=== PATIENT | female | born 1980 | race Caucasian/White ===

== ENCOUNTER → 2019-10-23 13:30 | Outpatient (CLI) | payer OTHER, SELFPAY ==
--- NOTE | 2019-10-23 13:31 | CT_ITS ---
PROCEDURE: CT CHEST WO CON CLINICAL INDICATION: RUL pulmonary nodule Follow-up pulmonary nodule COMPARISON: ABDPELW/O CT ABD PELVIS W/O CONTRAST from 06/18/2013 TECHNIQUE: Axial images obtained with sagittal and coronal reformats. All CT scans at the facility use one or more dose reduction, viz: automated exposure control, ma/kV adjustment per patient size (including targeted exams where dose is matched to indication, i.e. head), or iterative reconstruction technique. FINDINGS: HEART AND MEDIASTINAL STRUCTURES: Scattered small calcified nodes are present in the mediastinum and right hilum. LUNGS AND PLEURAL SPACES: There is a noncalcified 7 x 6 mm right apical nodule within the central aspect of the right apex. Margins are somewhat irregular. There is a 3 mm noncalcified nodule right upper lobe laterally image 41 series 3. There are few scattered subpleural nodules in the right upper lobe nonspecific. Subpleural nodule is present in the right lower lobe posteriorly at 4 mm image 51 series 3. 4 mm noncalcified nodule left lower lobe laterally image 65 series 3. Subpleural nodule left lower lobe laterally 4 mm image 60 series 3 3 mm noncalcified nodule left lower lobe posterior laterally image 57 series 3 there are some paraseptal emphysematous changes with changes of COPD. No effusions or infiltrates. There is a calcified granuloma in the superior segment of the right lower lobe BONY STRUCTURES: No acute finding UPPER ABDOMEN: Unremarkable. ADDITIONAL FINDINGS: No other significant abnormalities. IMPRESSION: There are noncalcified small bilateral pulmonary nodules the largest is in the right apex at 7 x 6 mm. These are nonspecific and could be infectious/inflammatory or neoplastic. There are no previous exams available for comparison. Outside report from a neck CT dating 10/08/2019 mentions a right upper lobe pulmonary nodule at 7 mm. Recommend 3 to six-month follow-up Dictated by: Byron Nielsen MD 10/24/2019 13:13 Electronically signed by Byron Nielsen MD in [place] 10/24/2019 13:13
== END ==
PROVIDERS: PCP Physician Assistant; Visit Provider Physician Assistant
DX: R91.8 Other nonspecific abnormal finding of lung field (principal)
CPT/HCPCS: 71250

== ENCOUNTER → 2019-12-04 14:08 | Outpatient (CLI) | payer OTHER, SELFPAY ==
[2019-12-04 14:11] LABS: MANUAL DIFFERENTIAL MANUAL DIFFERENTIAL (MANUAL DIFF)
[2019-12-04 14:50] LABS: Basophils # 0.1 K/mm3 (0-0.2); Basophils % 0.9 % (0.1-2.0); Eosinophils # 0.1 K/mm3 (0.0-0.4); Eosinophils % 0.7 % (0.1-12.0); Hematocrit 46.4 % (37.0-47.0); Lymphocytes # 2.6 K/mm3 (0.7-4.5); Lymphocytes % 27.4 % (10-50); Mean Corpuscular HGB Conc 32.4 g/dL (31.8-35.4); Mean Corpuscular Hemoglobin 28.1 pg (27.0-31.2); Mean Corpuscular Volume 86.8 fl (81-99); Monocytes # 0.4 K/mm3 (0.1-1.0); Monocytes % 4.4 % (1.7-9.3); Neutrophils # 6.4 K/mm3 (1.8-7.8); Neutrophils % 66.7 % (37.0-80.0); Platelet Count 260 K/mm3 (142-424); Red Blood Count 5.34 M/mm3 (4.20-5.40); White Blood Count 9.6 K/mm3 (4.8-10.8)
[2019-12-04 15:06] LABS: Alanine Aminotransferase 40 U/L (12-78); Albumin Level 4.7 g/dl (3.5-5.0); Alkaline Phosphatase 57 U/L (38-126); Aspartate Amino Transferase 39 U/L (14-36); Bilirubin,Direct 0.1 mg/dl (0.0-0.4); Bilirubin,Indirect 0.4 mg/dL (0.0-0.9); Bilirubin,Total 0.5 mg/dl (0.2-1.3); Bilirubin,Unconjugated 0.4 mg/dL (0.0-1.1)
[2019-12-04 15:12] LABS: INR 1.03 (0.9-1.1); Prothrombin Time 10.7 seconds (9.4-11.8)
[2019-12-04 15:37] LABS: Lymphocytes % 28 % (10-50); Monocytes % 3 % (2-9); Neutrophils % 69 % (42-76); Total Cells Counted 100
[2019-12-04 15:39] LABS: Platelet Estimate Normal; RBC Morphology Normal
[2019-12-06 05:07] LABS: HIV Screen 4th Generation wRfx Non Reactive (Non Reactive); Hep A Ab, IgM Negative (Negative); Hep A Ab, Total Positive (Negative); Hep B Core Ab, Total Negative (Negative)
[2019-12-06 11:27] LABS: Hep B Surface Ab, Qual Non Reactive (.); Hepatitis B Surface Antigen Negative (Negative)
[2019-12-07 20:08] LABS: Hepatitis C Genotype 1a (.)
== END ==
PROVIDERS: Visit Provider Physician Assistant
DX: B19.20 Unspecified viral hepatitis C without hepatic coma (principal)
CPT/HCPCS: 36415; 80076; 85007; 85014; 85018; 85048; 85049; 85610; 86703; 86704; 86706; 86708; 87340; 87522; G0432

== ENCOUNTER → 2020-01-31 13:11 | Outpatient (CLI) | payer OTHER, SELFPAY ==
--- NOTE | 2020-01-31 13:16 | CT_ITS ---
PROCEDURE: CT CHEST WO CON CLINICAL INDICATION: 3 mth f/u Follow-up of the nodule COMPARISON: CT CHEST WO CON from 10/23/2019 TECHNIQUE: Axial images obtained with sagittal and coronal reformats. All CT scans at the facility use one or more dose reduction, viz: automated exposure control, ma/kV adjustment per patient size (including targeted exams where dose is matched to indication, i.e. head), or iterative reconstruction technique. FINDINGS: HEART AND MEDIASTINAL STRUCTURES: Unremarkable. LUNGS AND PLEURAL SPACES: No change 7 mm noncalcified nodule right apex. There are few scattered subpleural blebs. Calcified granuloma right upper lobe other smaller pulmonary nodules as previously described not significantly changed some of which are subpleural. BONY STRUCTURES: No acute bony abnormalities apparent. UPPER ABDOMEN: Mild thickening the GE junction nonspecific. ADDITIONAL FINDINGS: Scattered small axillary and upper abdominal nodes IMPRESSION: Overall no change chest CT the. Suggest 9 month follow-up to confirm 1 year stability Dictated by: Byron Nielsen MD 02/01/2020 11:15 Electronically signed by Byron Nielsen MD in [place] 02/01/2020 11:15
== END ==
PROVIDERS: PCP Physician Assistant; Visit Provider Physician Assistant
DX: R91.8 Other nonspecific abnormal finding of lung field (principal)
CPT/HCPCS: 71250

== ENCOUNTER → 2020-03-25 13:34 | Outpatient (CLI) | payer OTHER, SELFPAY ==
[2020-03-25 14:40] LABS: Basophils # 0.1 K/mm3 (0-0.2); Basophils % 0.8 % (0.1-2.0); Eosinophils # 0.2 K/mm3 (0.0-0.4); Eosinophils % 3.4 % (0.1-12.0); Hematocrit 43.6 % (37.0-47.0); Hemoglobin 14.2 g/dL (12.2-16.2); Lymphocytes % 44.4 % (10-50); Mean Corpuscular HGB Conc 32.6 g/dL (31.8-35.4); Mean Corpuscular Hemoglobin 28.6 pg (27.0-31.2); Mean Corpuscular Volume 87.6 fl (81-99); Mean Platelet Volume 10.3 fl (7.4-10.4); Monocytes # 0.4 K/mm3 (0.1-1.0); Monocytes % 5.5 % (1.7-9.3); Neutrophils # 3.1 K/mm3 (1.8-7.8); Neutrophils % 45.9 % (37.0-80.0); Platelet Count 195 K/mm3 (142-424); Red Blood Count 4.98 M/mm3 (4.20-5.40); White Blood Count 6.7 K/mm3 (4.8-10.8)
[2020-03-25 15:03] LABS: Chloride 102 mmol/L (98-107); Potassium 4.6 mmoL/L (3.5-5.1); Sodium 139 mmol/L (136-145)
[2020-03-25 15:06] LABS: Alanine Aminotransferase 35 U/L (12-78); Albumin Level 3.8 g/dl (3.5-5.0); Albumin/Globulin Ratio 1.4 (1.1-1.8); Alkaline Phosphatase 55 U/L (38-126); Anion Gap 11.6 mEq/L (5-15); Aspartate Amino Transferase 36 U/L (14-36); Bilirubin,Total 0.3 mg/dl (0.2-1.3); Blood Urea Nitrogen 8 mg/dl (7-17); Calcium 9.2 mg/dl (8.4-10.2); Carbon Dioxide 30 mmol/L (22.0-30.0); Estimated Glomerular Filt Rate 112 ml/min (>60); GFR (African American) 136 ML/MIN (>60); Globulin 2.7 g/dL (1.3-3.2); Glucose 66 mg/dl (74-100); Total Protein,Serum 6.5 g/dl (6.3-8.2)
[2020-03-25 15:12] LABS: INR 1.02 (0.9-1.1); Prothrombin Time 10.5 seconds (9.4-11.8)
[2020-03-27 10:50] LABS: HIV Screen 4th Generation wRfx Non Reactive (Non Reactive); Hep A Ab, IgM Negative (Negative); Hep A Ab, Total Positive (Negative); Hep B Core Ab, Total Negative (Negative)
[2020-03-27 11:17] LABS: Hep B Surface Ab, Qual Non Reactive (.); Hepatitis B Surface Antigen Negative (Negative)
[2020-04-07 15:09] LABS: HCV Genotype Charge YES; Hepatitis C Genotype 1a
[2020-04-23 09:28] LABS: HCV Genotype 1a
== END ==
PROVIDERS: Visit Provider Emergency Medicine
DX: B19.20 Unspecified viral hepatitis C without hepatic coma (principal)
CPT/HCPCS: 36415; 80053; 85025; 85610; 86703; 86704; 86706; 86708; 87340; 87522; 87902; G0432

== ENCOUNTER → 2021-06-01 16:34 | Outpatient (CLI) | payer MEDICAID, SELFPAY ==
[2021-06-01 16:56] LABS: Basophils # 0.1 K/mm3 (0-0.2); Basophils % 1.2 % (0.1-2.0); Eosinophils # 0.2 K/mm3 (0.0-0.4); Eosinophils % 1.5 % (0.1-12.0); Hematocrit 42.7 % (37.0-47.0); Lymphocytes # 3.1 K/mm3 (0.7-4.5); Lymphocytes % 27.8 % (10-50); Mean Corpuscular HGB Conc 32.8 g/dL (31.8-35.4); Mean Corpuscular Volume 88.4 fl (81-99); Mean Platelet Volume 9.1 fl (7.4-10.4); Monocytes # 0.4 K/mm3 (0.1-1.0); Monocytes % 3.5 % (1.7-9.3); Neutrophils # 7.3 K/mm3 (1.8-7.8); Platelet Count 295 K/mm3 (142-424); Red Blood Count 4.83 M/mm3 (4.20-5.40); Red Cell Distribution Width 13.2 % (11.5-17.5); White Blood Count 11.1 K/mm3 (4.8-10.8)
[2021-06-01 17:10] LABS: INR 0.96 (0.9-1.1); Prothrombin Time 10.9 seconds (10.1-12.5)
[2021-06-01 18:42] LABS: Chloride 104 mmol/L (98-107)
[2021-06-01 18:43] LABS: Sodium 139 mmol/L (136-145)
[2021-06-01 18:45] LABS: Alanine Aminotransferase 39 U/L (12-78); Aspartate Amino Transferase 40 U/L (14-36); Blood Urea Nitrogen 6 mg/dl (7-17); Estimated Glomerular Filt Rate 111 ml/min (>60); GFR (African American) 135 ML/MIN (>60)
[2021-06-01 18:46] LABS: Albumin Level 4.3 g/dl (3.5-5.0); Albumin/Globulin Ratio 1.3 (1.1-1.8); Alkaline Phosphatase 97 U/L (38-126); Bilirubin,Total 0.3 mg/dl (0.2-1.3); Carbon Dioxide 26 mmol/L (22.0-30.0); Globulin 3.3 g/dL (1.3-3.2); Glucose 100 mg/dl (74-100); Total Protein,Serum 7.6 g/dl (6.3-8.2)
[2021-06-03 07:12] LABS: Hep A Ab, IgM Negative (Negative); Hep A Ab, Total Positive (Negative); Hep B Core Ab, Total Negative (Negative); Hep B Surface Ab, Qual Non Reactive (.); Hepatitis B Surface Antigen Negative (Negative); Hepatitis C Antibody >11.0 s/co ratio (0.0-0.9)
[2021-06-03 09:08] LABS: HIV Screen 4th Generation wRfx Non Reactive (Non Reactive)
[2021-06-04 18:28] LABS: HCV Genotype Charge YES; Hepatitis C Genotype 1a (.)
[2021-06-05 00:07] LABS: ALT (SGPT) P5P 41 IU/L (0-40); Alpha 2-Macroglobulins, Qn 197 mg/dL (110-276); Apolipoprotein A-1 161 mg/dL (116-209); Bilirubin, Total 0.1 mg/dL (0.0-1.2); Fibrosis Score 0.02 (0.00-0.21); GGT 18 IU/L (0-60); Haptoglobin 177 mg/dL (33-278); Necroinflammat Activity Grade A0-No activity (.); Necroinflammat Activity Score 0.16 (0.00-0.17)
== END ==
PROVIDERS: Visit Provider Physician Assistant
DX: B19.20 Unspecified viral hepatitis C without hepatic coma (principal); Z11.4 Encounter for screening for human immunodeficiency virus [HIV]
CPT/HCPCS: 36415; 80053; 81596; 85025; 85610; 86703; 86704; 86706; 86708; 87340; 87380; 87522; 87902; G0432

== ENCOUNTER → 2021-06-11 14:50 | Outpatient (CLI) | payer MEDICAID, SELFPAY ==
--- NOTE | 2021-06-11 14:50 | CT_ITS ---
PROCEDURE: CT CHEST WO CON CLINICAL INDICATION: lung nodule f/u COMPARISON: CT CT CHEST WO CON from 01/31/2020 TECHNIQUE: Axial images obtained with sagittal and coronal reformats. All CT scans at the facility use one or more dose reduction, viz: automated exposure control, ma/kV adjustment per patient size (including targeted exams where dose is matched to indication, i.e. head), or iterative reconstruction technique. FINDINGS: HEART AND MEDIASTINAL STRUCTURES: Unremarkable. LUNGS AND PLEURAL SPACES: No change 7 mm right. Old granulomatous disease. No change small subpleural and parenchymal opacities. No new nodules. No effusions or infiltrates. BONY STRUCTURES: No acute bony abnormalities apparent. UPPER ABDOMEN: Unremarkable. ADDITIONAL FINDINGS: No other significant abnormalities. IMPRESSION: Stable CT appearance of the chest. No enlarging or new nodules evident. Recommend 12 month follow-up to confirm 2 year stability of the right apical nodule. Dictated by: Byron Nielsen MD 06/12/2021 08:38 Byron Nielsen MD in [place] 06/12/2021 08:38
== END ==
PROVIDERS: PCP Physician Assistant; Visit Provider Physician Assistant
DX: R91.1 Solitary pulmonary nodule (principal)
CPT/HCPCS: 71250

== ENCOUNTER 2021-08-07 22:10 | Emergency (ER) | payer MEDICAID, SELFPAY ==
[2021-08-07 22:11] VITALS: BP 133/76; PULSE 85; RESP 16; TEMP 36.8; O2SAT 97; BMI 35.3
--- NOTE | 2021-08-07 22:21 | HMH.EDGENADL ---
ED Disposition Clinical Impression: Muscle strain Disposition: Home, Self-Care Condition on Discharge: Good Referrals: Socorro Mehta PA [Primary Care Provider] - - Critical Care Critical Care Time: No Attestation: On , the high probability of a clinically significant, sudden or life threatening deterioration of the following system(s) required my full and direct attention, intervention and personal management. The time I documented below is in addition to time spent performing reported procedures but includes the following listed in this critical care notation. Medical Decision Making - Ignacio Inquiry Pt receiving controlled substance: No Vital Signs: 08/07/21 22:11 Temperature 98.3 F Temperature Source Oral Pulse Rate [Left] 85 Respiratory Rate 16 Blood Pressure [Right Arm] 133/76 Blood Pressure Mean [Right Arm] 95 02 Sat by Pulse Oximetry 97 Oxygen Delivery Method Room Air Orders (Tests/Meds): ED MEDICATIONS Discontinued Medications Generic Name Dose Route Start Last Admin Trade Name Freq PRN Reason Stop Dose Admin Ketorolac Tromethamine 60 mg 08/07/21 22:21 08/07/21 22:46 Ketorolac 60mg/2ml Vial IM 08/07/21 22:22 60 mg ONCE ONE Administration Medical Decision Narrative: In summary this is a 41-year-old female who presents to the emergency department with left hip and lower back pain after lifting something onto a top shelf and feeling a slight pulling sensation. Differential diagnosis includes muscle strain, sciatica, herniated disc, hip fracture or dislocation. The patient is well-appearing with stable vital signs. She is bearing weight without difficulty. Her history and physical exam is not consistent with any low back issue including disc herniation or sciatica. Straight leg raise negative. She has no trauma SI very low suspicion for fracture or dislocation. Her history and physical exam including tenderness to palpation over lateral hip is most consistent with muscle strain. Given this we will give Toradol and reassess. On reassessment the patient notes improvement of her pain. She was able to ambulate in the room with no limp or difficulty. Given this she was deemed appropriate for discharge. She was encouraged to take Tylenol and ibuprofen [id number] for the next couple of days. She will see her primary care doctor next week and return for any worsening symptoms. General Adult HPI - General Stated complaint: pain shooting from left hip to lower back Time Seen by Provider: 08/07/21 22:22 - History of Present Illness HPI narrative: The patient is a 41-year-old female with no significant past medical history who presents to the emergency department with left hip and left lower back pain. The patient reports she works at [employer] and was lifting a pizza james onto the top shelf last night when she felt a pull in her left hip. She states that since then she has had pain in this area that is radiating up towards her left lower back. She denies any midline pain in her back. She denies any falls. She reports that she took Tylenol this morning with some improvement. She is able to bear weight without difficulty. She denies any pain radiating down the back of her leg. She reports that occasionally if she moves a certain way the pain gets more severe causing some nausea. She denies pain anywhere else. - Related Data Previous Rx's Medication Instructions Recorded escitalopram oxalate 10 mg tablet 10 mg PO DAILY #30 tab 06/01/21 semaglutide 0.25 mg SQ WEEKLY #1.5 ml 06/01/21 Allergies Allergy/AdvReac Type Severity Reaction Status Date / Time penicillin G [PENICILLIN G] Allergy Intermediate I-HIVES Verified 07/07/21 15:58 Sulfa (Sulfonamide Allergy Intermediate I-HIVES Verified 07/07/21 15:58 Antibiotics) [SULFA (SULFONAMIDE ANTIBIOTICS)] [facility] History - Hepatitis A Screen Attestation statement:: This patient has
[2021-08-07 23:17] VITALS: BP 108/72; PULSE 73; RESP 16; TEMP 36.7; O2SAT 98
== END 2021-08-07 23:26 | disposition home or self-care (01) ==
PROVIDERS: Emergency Provider Emergency Medicine; PCP Physician Assistant
DX: S33.5XXA Sprain of ligaments of lumbar spine, initial encounter (principal); X50.0XXA Overexertion from strenuous movement or load, initial encounter; Y92.89 Other specified places as the place of occurrence of the external cause; F17.210 Nicotine dependence, cigarettes, uncomplicated; Z88.0 Allergy status to penicillin; Z88.2 Allergy status to sulfonamides
CPT/HCPCS: 96372; 99281

== ENCOUNTER → 2021-08-23 09:43 | Outpatient (CLI) | payer MEDICAID, SELFPAY | PROVIDERS: PCP Physician Assistant; Visit Provider Nurse Practitioner | DX: Z20.822 Contact with and (suspected) exposure to COVID-19 (principal) | CPT/HCPCS: C9803; U0003; U0005 ==

== ENCOUNTER → 2021-08-27 10:17 | Outpatient (CLI) | payer MEDICAID, SELFPAY ==
--- NOTE | 2021-08-27 10:17 | CT_ITS ---
FINAL REPORT TECHNIQUE: Thin section axial images were obtained from the lung bases to the pubic symphysis without IV contrast. CLINICAL HISTORY: L Sided Abd pain FINDINGS: There are no renal or ureteral stones. There is no hydronephrosis or perinephric stranding. The gallbladder is present. The remaining unenhanced solid abdominal organs are unremarkable. There is no evidence of small bowel obstruction. The appendix is normal. GI tract is without acute abnormality. The uterus and ovaries are normal for age. There is no lymphadenopathy or ascites. No acute osseous abnormality is identified. IMPRESSION: No renal or ureteral stones. No hydronephrosis. No acute abnormality on this unenhanced exam. Reviewed, Interpreted and Dictated by Emilee Alexander MD Transcribed by Christine Reaves Authenticated by Emilee Alexander MD on 08/27/2021 11:22:48 AM [facility]
== END ==
PROVIDERS: PCP Physician Assistant; Visit Provider Nurse Practitioner Family
DX: R10.9 Unspecified abdominal pain (principal)
CPT/HCPCS: 74176

== ENCOUNTER → 2021-09-02 16:40 | Outpatient (CLI) | payer MEDICAID, SELFPAY | PROVIDERS: PCP Emergency Medicine; Visit Provider Nurse Practitioner | DX: Z20.822 Contact with and (suspected) exposure to COVID-19 (principal) | CPT/HCPCS: C9803; U0003; U0005 ==

== ENCOUNTER 2021-09-02 16:58 | Emergency (ER) | payer MEDICAID, SELFPAY ==
[2021-09-02 18:17] VITALS: BP 141/89; PULSE 78; RESP 18; TEMP 36.7; O2SAT 99; BMI 28.1
[2021-09-02 18:24] LABS: UTC Strep Screen (Rapid) Negative (Negative)
[2021-09-02 18:25] LABS: UTC Influenza A Antigen Negative (Negative); UTC Influenza B Antigen Negative (Negative)
[2021-09-02 18:39] VITALS: BP 141/89; PULSE 78; RESP 18; TEMP 36.7; O2SAT 99
--- NOTE | 2021-09-02 18:43 | HMH.EDUTC ---
[facility] [place] Disposition Clinical Impression: Otitis media Qualifiers: Otitis media type: unspecified Laterality: bilateral Qualified Code(s): H66.93 - Otitis media, unspecified, bilateral Disposition: Home, Self-Care Condition on Discharge: Good Instructions: Middle Ear Infection, Sore Throat Additional Instructions: *Monitor Temp, Over the counter Motrin or Tylenol as directed/as needed Tylenol every 4 hours and Motrin every 6 hours (as long as your family doctor has told you that you can take it) for fever or pain. and straight to ER if unable to lower temp less than 101.0 after medication given *Warm salt water gargles may help to soothe the throat *Throat Lozenges *Warm fluids like tea with honey may help to soothe the throat *Sleep elevated *Humidifier/Vaporizer Take medication as prescribed Follow up IMMEDIATELY for new or worsening symptoms or no Noticeable improvement over the next 48-72 hours. 911 for difficulty breathing or swallowing Prescriptions: methylPREDNISolone [Medrol 4mg tab] 4 mg PO DIRECTED #21 tab Transmission Status: Pending to [facility] Azithromycin [Z-Marc 250mg Tab] 250 mg PO DIRECTED #6 tab Transmission Status: Pending to [facility] Referrals: Eugene Son MD [Primary Care Provider] - As needed Forms: Work/School Release Time of Disposition: 19:01 Medical Decision Making - Ignacio Inquiry Pt receiving controlled substance: No Ignacio was queried for this patient: No Vital Signs: 09/02/21 18:17 09/02/21 18:39 Temperature 98.1 F 98.1 F Temperature Source Oral Pulse Rate 78 Pulse Rate [Right Brachial] 78 Respiratory Rate 18 18 Blood Pressure 141/89 H Blood Pressure [Right Arm] 141/89 H Blood Pressure Mean [Right Arm] 106 Blood Pressure Source [Right Arm] Automatic Cuff Blood Pressure Position [Right Arm] Sitting 02 Sat by Pulse Oximetry 99 Oxygen Delivery Method Room Air - Lab Data Lab results reviewed: Yes: I reviewed the patient's lab results. Lab Results 09/02/21 18:18: Influenza Type A Ag Negative, Influenza Type B Ag Negative 09/02/21 18:18: Strep Scn Rapid Clinic Negative Orders (Tests/Meds): ORDERS Category Date Time Status Strep Screen Confirmation Stat Micro 09/02/21 18:18 Received Medical Decision Narrative: Medication discussed with pharmacy [facility] [place] HPI - General Stated complaint: sore throat, cough, headache, weakness, vomiting Time Seen by Provider: 09/02/21 18:43 Mode of Arrival: Ambulatory Source of Information: Patient Limitations: No Limitations Description of Symptoms (Recalled from Triage Doc. by RN): PATIENT C/O BILATERAL EAR PAIN, FEVER, BODY ACHES, AND CHEST CONGESTION SINCE YESTERDAY HEENT Symptoms (Recalled from RN notes): Yes Resp Symptoms (Recalled from RN notes): No Skin Symptoms (Recalled from RN notes): No MS Symptoms (Recalled from RN notes): No Functional Status (Recalled from RN notes): WNL - History of Present Illness Provider Complaint: Patient states that she started having sore throat, bilateral ear pain and congestion for several days but got worse yesterday States that she felt a little off balance today like she had some fluid in her ears and pain in her ears has continued to get worse so she came in to get checked - Related Data Previous Rx's Medication Instructions Recorded dicyclomine 20 mg tablet 20 mg PO TID 30 Days #90 tab 08/11/21 Azithromycin [Z-Marc 250mg Tab] 250 mg PO DIRECTED #6 tab 09/02/21 methylPREDNISolone [Medrol 4mg 4 mg PO DIRECTED #21 tab 09/02/21 tab] Allergies Allergy/AdvReac Type Severity Reaction Status Date / Time penicillin G [PENICILLIN G] Allergy Intermediate I-HIVES Verified 08/11/21 11:30 Sulfa (Sulfonamide Allergy Intermediate I-HIVES Verified 08/11/21 11:30 Antibiotics) [SULFA (SULFONAMIDE ANTIBIOTICS)] - Worker's Comp Is this a Worker's Comp case?: No [facility] History - Hepatit
== END 2021-09-02 19:00 | disposition home or self-care (01) ==
PROVIDERS: Emergency Provider Nurse Practitioner; PCP Emergency Medicine
DX: H66.93 Otitis media, unspecified, bilateral (principal); Z88.0 Allergy status to penicillin; Z88.2 Allergy status to sulfonamides
CPT/HCPCS: 87804; 87880; 99203; G0463

== ENCOUNTER 2022-07-15 13:29 | Emergency (ER) | payer OTHER, SELFPAY ==
[2022-07-15 15:28] VITALS: BP 115/79; PULSE 92; RESP 16; TEMP 36.8; O2SAT 100; BMI 26.2
--- NOTE | 2022-07-15 15:59 | EXP.UTC ---
Discharge Plan Disposition Patient Disposition: Home, Self-Care Condition: Good Prescriptions Prescriptions: New oseltamivir [Tamiflu] 75 mg capsule 75 mg PO BID Qty: 10 0RF benzonatate [benzonatate] 100 mg capsule 100 mg PO TIDP PRN (Reason: Cough) Qty: 30 0RF methylprednisolone 4 mg Tablets,Dose Pack 4 mg PO DIRECTED Qty: 21 0RF Referrals Follow up/Referrals: Socorro Mehta PA [Primary Care Provider] - See instructions Activity Restrictions/Add. Instructions Additional Instructions/Restrictions: Drink plenty of fluids. Take tylenol or ibuprofen for pain or fever. Take the medications as directed. Follow up with your regular doctor. GO TO THE ER FOR ANY WORSENING SYMPTOMS Clinical Impressions Clinical Impression: Influenza A Instructions Patient Instructions: DI for Influenza -- Adult, Oseltamivir Discharge ED Provider: Chaz Stockton [facility] General Stated complaint: drainage, sore throat, cough Mode of Arrival: Ambulatory Source of Information: Patient Limitations: No Limitations Time Seen by Provider: 07/15/22 15:42 Description of Symptoms (Recalled from Triage Doc. by RN): pt c/o runny nose, sore throat, body aches, fever and chills since yesterday HEENT Symptoms (Recalled from RN notes): Yes (cough, congestion, body aches, chills) Resp Symptoms (Recalled from RN notes): No Skin Symptoms (Recalled from RN notes): No MS Symptoms (Recalled from RN notes): No Functional Status (Recalled from RN notes): na History of Present Illness Provider Complaint: She states that for the past 2 days she has had sore throat, chills, body aches and low grade fever. Related Data Previous Rx's Medication Instructions Recorded benzonatate 100 mg capsule 100 mg PO TIDP PRN Cough #30 caps 07/15/22 methylprednisolone 4 mg tablets in 4 mg PO DIRECTED #21 tabs 07/15/22 a dose pack oseltamivir 75 mg capsule (Tamiflu) 75 mg PO BID #10 caps 07/15/22 Allergies Allergy/AdvReac Type Severity Reaction Status Date / Time penicillin G [PENICILLIN G] Allergy Intermediate I-HIVES Verified 11/17/21 15:18 Sulfa (Sulfonamide Allergy Intermediate I-HIVES Verified 11/17/21 15:18 Antibiotics) [SULFA (SULFONAMIDE ANTIBIOTICS)] Worker's Comp Is this a Worker's Comp case?: No PFSH PFSH Medical History Hepatitis C Lung nodules Obesity (BMI 30-39.9) Surgical History H/O tubal ligation History of tympanostomy tube placement Social History Smoking Status: Current every day smoker tobacco type: cigarettes packs per day: 1 alcohol intake: never substance use type: former substance user, heroin and opiates current occupational status: unemployed Travel in the last 8 weeks: None ROS Obtained: Yes All systems reviewed & no additional complaints except as documented Constitutional Constitutional: Reports chills and Reports fever(s) Eyes Eyes: Denies eye discharge ENT Ears, Nose, Mouth, and Throat: Reports as per HPI Cardiovascular Cardiovascular: Denies chest pain Respiratory Respiratory: Denies chest congestion and Reports cough Gastrointestinal Gastrointestingal: Reports nausea; Denies abdominal pain, constipation, cramping, diarrhea or vomiting Musculoskeletal Musculoskeletal: Denies arthralgias Integumentary/Breasts Skin/Breast: Denies rash Neurologic Neurologic: Denies paresthesias Physical Exam General General appearance: alert and in no apparent distress Head Head exam: atraumatic, normocephalic and normal inspection Eye Eye exam: Present normal appearance, PERRL and EOMI ENT ENT exam: Present normal exam, normal oropharynx, mucous membranes moist, TM's normal bilaterally and normal external ear exam Neck Neck exam: Present normal inspection, full ROM and trachea midline; Absent meningismus or
[2022-07-15 16:06] VITALS: BP 115/79; PULSE 92; RESP 16; TEMP 36.8; O2SAT 100
[2022-07-15 16:11] LABS: UTC Influenza A Antigen Positive (Negative); UTC Influenza B Antigen Negative (Negative)
== END 2022-07-15 16:42 | disposition home or self-care (01) ==
PROVIDERS: Emergency Provider Nurse Practitioner Family; PCP Physician Assistant
DX: J10.1 Influenza due to other identified influenza virus with other respiratory manifestations (principal)
CPT/HCPCS: 87804; 99212; G0463

== ENCOUNTER → 2022-07-20 12:09 | Outpatient (CLI) | payer OTHER, SELFPAY ==
[2022-07-20 13:18] LABS: Basophils # 0.1 K/mm3 (0-0.2); Basophils % 1.1 % (0.1-2.0); Eosinophils # 0.2 K/mm3 (0.0-0.4); Eosinophils % 1.4 % (0.1-12.0); Hematocrit 47.6 % (37.0-47.0); Hemoglobin 14.9 g/dL (12.2-16.2); Lymphocytes # 4.2 K/mm3 (0.7-4.5); Lymphocytes % 38.8 % (10-50); Mean Corpuscular HGB Conc 31.3 g/dL (31.8-35.4); Mean Corpuscular Hemoglobin 28.4 pg (27.0-31.2); Mean Corpuscular Volume 90.5 fl (81-99); Mean Platelet Volume 9.2 fl (7.4-10.4); Monocytes # 0.5 K/mm3 (0.1-1.0); Monocytes % 4.3 % (1.7-9.3); Neutrophils # 5.8 K/mm3 (1.8-7.8); Neutrophils % 54.4 % (37.0-80.0); Platelet Count 267 K/mm3 (142-424); Red Blood Count 5.26 M/mm3 (4.20-5.40); Red Cell Distribution Width 14.1 % (11.5-17.5); White Blood Count 10.7 K/mm3 (4.8-10.8)
[2022-07-20 14:19] LABS: Anion Gap 8.9 mEq/L (5-15); Blood Urea Nitrogen 8 mg/dl (7-17); Carbon Dioxide 30 mmol/L (22.0-30.0); Chloride 103 mmol/L (98-107); Estimated Glomerular Filt Rate 79 ml/min (>60); Potassium 3.9 mmoL/L (3.5-5.1); Sodium 138 mmol/L (136-145)
[2022-07-20 14:20] LABS: Alanine Aminotransferase 34 U/L (12-78); Albumin Level 4.5 g/dl (3.5-5.0); Albumin/Globulin Ratio 1.6 (1.1-1.8); Alkaline Phosphatase 86 U/L (38-126); Aspartate Amino Transferase 28 U/L (14-36); Bilirubin,Total 0.5 mg/dl (0.2-1.3); Calcium 9.5 mg/dl (8.4-10.2); GFR (African American) 96 ML/MIN (>60); Globulin 2.9 g/dL (1.3-3.2); Glucose 85 mg/dl (74-100); Total Protein,Serum 7.4 g/dl (6.3-8.2)
[2022-07-20 14:52] LABS: Thyroid Stimulating Hormone 1.16 uIU/mL (0.465-4.68)
[2022-07-20 19:06] LABS: Benzodiazepines Screen,Urine Negative ng/ml (<200)
[2022-07-20 19:07] LABS: Amphetamine/Metha Screen,Urine Negative ng/ml (<1000); Barbiturates Screen,Urine Negative ng/ml (<200)
[2022-07-20 19:08] LABS: Cannabinoid Screen,Urine Negative ng/ml (<50)
[2022-07-20 19:09] LABS: Cocaine Screen,Urine Negative ng/ml (<300); Methadone Screen,Urine Negative ng/ml (<300)
[2022-07-20 19:10] LABS: Opiate Screen,Urine Negative ng/ml (<300)
[2022-07-20 19:11] LABS: Phencyclidine Screen,Urine Negative ng/ml (<25)
[2022-07-21 08:09] LABS: Hepatitis B Surface Antigen Negative (Negative)
[2022-07-22 23:40] LABS: Neisseria gonorrhoeae, NAA Negative (Negative)
[2022-07-26 13:23] LABS: Hepatitis C Antibody >11.0
[2022-07-26 13:24] LABS: Hep B Surface Ab, Qual NONREACTIVE
[2022-08-06 20:50] LABS: Trichomonas Vaginalis, NAA Negative
[2022-08-06 20:52] LABS: Pregabalin, Urine 0
== END ==
PROVIDERS: PCP Physician Assistant; Visit Provider Neuromusculoskeletal Medicine, Sports Medicine
DX: F11.20 Opioid dependence, uncomplicated (principal); B19.20 Unspecified viral hepatitis C without hepatic coma; Z71.6 Tobacco abuse counseling
CPT/HCPCS: 36415; 80053; 80305; 80366; 84443; 85025; 86592; 86706; 86707; 86780; 87340; 87380; 87491; 87522; 87536; 87591

== ENCOUNTER → 2022-07-27 09:48 | Outpatient (CLI) | payer OTHER, SELFPAY ==
[2022-08-06 22:35] LABS: HCV Log10 5.176 logIU/mL; Hepatitis C Antibody >11.0
[2022-08-09 10:27] LABS: HIV Screen 4th Generation wRfx NONREACTIVE
== END ==
PROVIDERS: Neuromusculoskeletal Medicine, Sports Medicine; PCP Physician Assistant
DX: B19.20 Unspecified viral hepatitis C without hepatic coma (principal)
CPT/HCPCS: 36415; 86703; 87380; G0432

== ENCOUNTER 2022-09-22 14:36 | Emergency (ER) | payer OTHER, SELFPAY ==
[2022-09-22 15:30] VITALS: BP 123/75; PULSE 83; RESP 20; TEMP 36.6; O2SAT 98; BMI 24.2
--- NOTE | 2022-09-22 15:37 | EXP.UTC ---
Discharge Plan Disposition Patient Disposition: Home, Self-Care Condition: Good Prescriptions Prescriptions: New clindamycin HCl 300 mg capsule 300 mg PO Q8H Qty: 30 0RF mupirocin 2 % ointment 1 applic topical TID 7 Days Qty: 15 0RF cephalexin 500 mg capsule 500 mg PO QID Qty: 40 0RF Referrals Follow up/Referrals: Socorro Mehta PA [Primary Care Provider] - See instructions Activity Restrictions/Add. Instructions Additional Instructions/Restrictions: Keep the wounds clean and dry. Follow up with your regular doctor. Take the antibiotics as directed and apply the topical antibiotics as directed. Make sure you stay in contact with the health department regarding the health of the dog. Watch the wounds for signs of worsening infection, such as worsening redness, drainage, swelling, etc. GO TO THE ER FOR ANY WORSENING SYMPTOMS Clinical Impressions Clinical Impression: Dog bite of right lower leg Instructions Patient Instructions: Tetanus, Diphtheria, Pertussis (Tdap) Vaccine, DI for Dog Bite Discharge ED Provider: Chaz Stockton [facility] General Stated complaint: dog bite R leg knee area Time Seen by Provider: 09/22/22 15:37 History of Present Illness Provider Complaint: She states that earlier today she was bit by her dog. 2 dogs got in a fight and she got between them and one of them accidently bit her on the right knee. Her tetanus immunization is not up to date. Related Data Previous Rx's Medication Instructions Recorded cephalexin 500 mg capsule 500 mg PO QID #40 caps 09/22/22 clindamycin HCl 300 mg capsule 300 mg PO Q8H #30 caps 09/22/22 mupirocin 2 % topical ointment 1 applic topical TID 7 days #15 09/22/22 grams Allergies Allergy/AdvReac Type Severity Reaction Status Date / Time penicillin G [PENICILLIN G] Allergy Intermediate I-HIVES Verified 09/22/22 15:46 Sulfa (Sulfonamide Allergy Intermediate I-HIVES Verified 09/22/22 15:46 Antibiotics) [SULFA (SULFONAMIDE ANTIBIOTICS)] [facility] Disclaimer: The information contained in this section may have been updated after the patient was seen, as this information can be updated by other users. Medical History Hepatitis C Lung nodules Obesity (BMI 30-39.9) Surgical History H/O tubal ligation History of tympanostomy tube placement Social History Smoking Status: Current every day smoker tobacco type: cigarettes packs per day: 1 alcohol intake: never substance use type: former substance user, heroin and opiates current occupational status: unemployed Travel in the last 8 weeks: None ROS Obtained: Yes All systems reviewed & no additional complaints except as documented Constitutional Constitutional: Denies chills and Denies fever(s) Eyes Eyes: Denies eye discharge ENT Ears, Nose, Mouth, and Throat: Denies dizziness, Denies otalgia and Denies sore throat Cardiovascular Cardiovascular: Denies chest pain Respiratory Respiratory: Denies shortness of breath, Denies chest congestion, Denies cough, Denies stridor and Denies wheezing Gastrointestinal Gastrointestingal: Denies nausea or vomiting Musculoskeletal Musculoskeletal: Reports system reviewed and no additional complaints, except as documented and Denies arthralgias Integumentary/Breasts Skin/Breast: Reports as per HPI Neurologic Neurologic: Denies dizziness and Denies paresthesias Allergic/Immunologic Allergic/Immunologic: Denies wheezing Physical Exam General General appearance: alert and in no apparent distress Head Head exam: atraumatic, normocephalic and normal inspection Eye Eye exam: Present normal appearance, PERRL and EOMI ENT ENT exam: Present normal exam, normal oropharynx, mucous membranes moist, TM's normal bilaterally and normal external ear exam Neck N
[2022-09-22 16:28] VITALS: BP 123/75; PULSE 83; RESP 20; TEMP 36.6; O2SAT 98
== END 2022-09-22 16:27 | disposition home or self-care (01) ==
PROVIDERS: Emergency Provider Nurse Practitioner Family; PCP Physician Assistant
DX: S80.211A Abrasion, right knee, initial encounter (principal); W54.0XXA Bitten by dog, initial encounter; Z23 Encounter for immunization
CPT/HCPCS: 90471; 90715; 99212; 99213; G0463

== ENCOUNTER 2023-04-24 22:42 | Emergency (ER) | payer OTHER, SELFPAY ==
[2023-04-24 22:43] VITALS: BP 129/84; PULSE 91; RESP 18; TEMP 36.8; O2SAT 97; BMI 29.2
[2023-04-24 23:11] LABS: Coronavirus 19, PCR Not Detected (NotDetected); Influenza A, PCR Not Detected (NotDetected); Influenza B, PCR Not Detected (NotDetected)
[2023-04-25 00:43] VITALS: BP 124/72; BP 129/84; PULSE 84; PULSE 89; RESP 16; RESP 18; TEMP 36.8; O2SAT 97
--- NOTE | 2023-04-25 03:45 | HMH.EDGENADL ---
Discharge Plan Disposition Patient Disposition: Home, Self-Care Condition: Good Prescriptions Prescriptions: New Paxlovid 300 mg (150 mg x 2)-100 mg tablets,dose pack See Rx Instructions .ROUTE .COMPLEX Qty: 30 0RF Rx Instructions: take TWO 150 mg tablets of nirmatrelvir with ONE 100 mg tablet of ritonavir twice daily for 5 days No Action clindamycin HCl 300 mg capsule 300 mg PO Q8H Qty: 30 0RF mupirocin 2 % ointment 1 applic topical TID 7 Days Qty: 15 0RF cephalexin 500 mg capsule 500 mg PO QID Qty: 40 0RF Referrals Follow up/Referrals: Socroro Mehta PA [Primary Care Provider] - See instructions Activity Restrictions/Add. Instructions Additional Instructions/Restrictions: Please return to the emergency department if you experience any new or worsening symptoms. Clinical Impressions Clinical Impression: Close exposure to COVID-19 virus Stand Alone Forms Stand Alone Forms: Work/School Release Discharge ED Provider: Wayne Gorman Adult HPI General Chief complaint: Recheck/Abnormal Lab/Rx Stated complaint: exposed to covid Time Seen by Provider: 04/25/23 00:15 Mode of Arrival: Ambulatory Source of Information: Patient Limitations: No Limitations Description of Symptoms (Recalled from ER Triage Doc. by RN): pt exposed to covid History of Present Illness HPI narrative: Patient presents for evaluation of nausea, vomiting, nonbloody and nonbilious after recent COVID exposure, patient has had COVID in the past, otherwise has not received vaccination. No other complaints at this time. No chronic medical issues. Related Data Previous Rx's Medication Instructions Recorded cephalexin 500 mg capsule 500 mg PO QID #40 caps 09/22/22 clindamycin HCl 300 mg capsule 300 mg PO Q8H #30 caps 09/22/22 mupirocin 2 % topical ointment 1 applic topical TID 7 days #15 09/22/22 grams nirmatrelvir 300 mg (150 mg See Rx Instructions PO .COMPLEX 04/25/23 x2)-ritonavir 100 mg tablet,dose #30 tabs pack (Paxlovid) Allergies Allergy/AdvReac Type Severity Reaction Status Date / Time penicillin G [PENICILLIN G] Allergy Intermediate I-HIVES Verified 09/22/22 15:46 Sulfa (Sulfonamide Allergy Intermediate I-HIVES Verified 09/22/22 15:46 Antibiotics) [SULFA (SULFONAMIDE ANTIBIOTICS)] [facility] Disclaimer: The information contained in this section may have been updated after the patient was seen, as this information can be updated by other users. Medical History Hepatitis C Lung nodules Obesity (BMI 30-39.9) Surgical History H/O tubal ligation History of tympanostomy tube placement Social History Smoking Status: Current every day smoker tobacco type: cigarettes packs per day: 1 alcohol intake: never substance use type: former substance user, heroin and opiates current occupational status: unemployed Travel in the last 8 weeks: None ROS Obtained: Yes Systems reviewed as appropriate & no additional complaints except as documented Physical Exam General General appearance: alert and in no apparent distress Head Head exam: atraumatic and normocephalic Eye Eye exam: Present normal appearance Neck Neck exam: Present normal inspection Chest Chest inspection: Present normal inspection and symmetric chest wall rise Respiratory Respiratory exam: Present normal lung sounds bilaterally; Absent respiratory distress Cardiovascular Cardiovascular exam: Present regular rate and normal rhythm Abdominal Exam Abdominal exam: Present soft Neurological Exam Neurological exam: Present alert and oriented X3 Psychiatric Psychiatric exam: Present normal affect and normal mood Skin Skin exam: Present warm and dry Medical Decision Making Medical Records Medical records reviewed: Yes I reviewed the patient's m
== END 2023-04-25 00:45 | disposition home or self-care (01) ==
PROVIDERS: Emergency Provider Emergency Medicine; PCP Physician Assistant
DX: Z20.822 Contact with and (suspected) exposure to COVID-19 (principal); B19.20 Unspecified viral hepatitis C without hepatic coma; E66.9 Obesity, unspecified; F17.210 Nicotine dependence, cigarettes, uncomplicated
CPT/HCPCS: 87636; 99283

== ENCOUNTER 2023-08-29 11:22 | Emergency (ER) | payer OTHER, SELFPAY ==
[2023-08-29 11:45] VITALS: BP 111/77; PULSE 114; RESP 18; TEMP 37; O2SAT 99; BMI 31.3
--- NOTE | 2023-08-29 12:00 | EXP.UTC ---
Discharge Plan Disposition Patient Disposition: Home, Self-Care Condition: Good Prescriptions Prescriptions: New benzonatate [benzonatate] 100 mg capsule 100 mg PO TIDP PRN (Reason: Cough) Qty: 30 0RF ondansetron 4 mg Tablet,Disintegrating 4 mg PO Q8H PRN (Reason: Nausea) Qty: 12 0RF oseltamivir [Tamiflu] 75 mg capsule 75 mg PO BID Qty: 10 0RF Referrals Follow up/Referrals: Socorro Mehta PA [Primary Care Provider] - See instructions Activity Restrictions/Add. Instructions Additional Instructions/Restrictions: Drink plenty of fluids. Take tylenol or ibuprofen for pain or fever. Take the medications as directed. Follow up with your regular doctor. GO TO THE ER FOR ANY WORSENING SYMPTOMS Clinical Impressions Clinical Impression: Acute viral syndrome Stand Alone Forms Stand Alone Forms: Work/School Release Instructions Patient Instructions: DI for Viral Syndrome Discharge ED Provider: Chaz Stockton [facility] General Stated complaint: fever, chills Time Seen by Provider: 08/29/23 12:00 History of Present Illness Provider Complaint: She states that she has had fever, chills, cough, and malaise for the past 2 days. Related Data Previous Rx's Medication Instructions Recorded benzonatate 100 mg capsule 100 mg PO TIDP PRN Cough #30 caps 08/29/23 ondansetron 4 mg disintegrating 4 mg PO Q8H PRN Nausea #12 tabs 08/29/23 tablet oseltamivir 75 mg capsule (Tamiflu) 75 mg PO BID #10 caps 08/29/23 Allergies Allergy/AdvReac Type Severity Reaction Status Date / Time penicillin G [PENICILLIN G] Allergy Intermediate I-HIVES Verified 08/29/23 12:12 Sulfa (Sulfonamide Allergy Intermediate I-HIVES Verified 08/29/23 12:12 Antibiotics) [SULFA (SULFONAMIDE ANTIBIOTICS)] [facility] Disclaimer: The information contained in this section may have been updated after the patient was seen, as this information can be updated by other users. Medical History Hepatitis C Lung nodules Obesity (BMI 30-39.9) Surgical History H/O tubal ligation History of tympanostomy tube placement Social History Smoking Status: Current every day smoker tobacco type: cigarettes packs per day: 1 alcohol intake: never substance use type: former substance user, heroin and opiates current occupational status: unemployed Travel in the last 8 weeks: None ROS Obtained: Yes All systems reviewed & no additional complaints except as documented Constitutional Constitutional: Reports chills and Reports fever(s) Eyes Eyes: Denies eye discharge ENT Ears, Nose, Mouth, and Throat: Reports as per HPI Cardiovascular Cardiovascular: Denies chest pain Respiratory Respiratory: Denies chest congestion and Reports cough Gastrointestinal Gastrointestingal: Reports nausea; Denies abdominal pain, constipation, cramping, diarrhea or vomiting Musculoskeletal Musculoskeletal: Denies arthralgias Integumentary/Breasts Skin/Breast: Denies rash Neurologic Neurologic: Denies paresthesias Physical Exam General General appearance: alert and in no apparent distress Head Head exam: atraumatic, normocephalic and normal inspection Eye Eye exam: Present normal appearance, PERRL and EOMI ENT ENT exam: Present normal exam, normal oropharynx, mucous membranes moist, TM's normal bilaterally and normal external ear exam Neck Neck exam: Present normal inspection, full ROM and trachea midline; Absent meningismus or lymphadenopathy Chest Chest inspection: Present normal inspection and symmetric chest wall rise; Absent tenderness Respiratory Respiratory exam: Present normal lung sounds bilaterally; Absent respiratory distress Cardiovascular Cardiovascular exam: Present regular rate and normal rhythm; Absent JVD Abdominal Exam Abdominal exam: Present soft and normal bowel sounds; Absent distention, tenderness or guarding Extremities Exam Extremities exam: Present normal inspection, full ROM and normal capillary refill; Absent calf tenderness Back Exam Back exam: Present normal inspection; Absent tenderness Neurological Exam Neurological exam: Present alert and oriented X3 Psychiatric Psychiatric exam: Present normal affect and normal mood Skin Skin exam: Present warm, dry, intact and normal color Lymphatic Lymphatic Findings: no adenopathy Medical Decision Making Medical Records Medical records reviewed: No I reviewed the patient's medical records. Ignacio Inquiry Pt receiving controlled substance: No Lab Data Lab results reviewed: Yes I reviewed the patient's lab results. Orders (Tests/Meds): ORDERS Category Date Time Status Covid-19 Nasal PCR (H) Routine Lab 08/29/23 11:43 Ordered
[2023-08-29 12:13] LABS: UTC Influenza A Antigen Negative (Negative); UTC Influenza B Antigen Negative (Negative)
[2023-08-29 12:20] VITALS: BP 111/77; PULSE 114; RESP 18; TEMP 36.7; O2SAT 99
== END 2023-08-29 12:20 | disposition home or self-care (01) ==
PROVIDERS: Emergency Provider Nurse Practitioner Family; PCP Physician Assistant
DX: R05.9 Cough, unspecified (principal); R50.9 Fever, unspecified; R53.81 Other malaise; R11.0 Nausea; B34.9 Viral infection, unspecified; F17.210 Nicotine dependence, cigarettes, uncomplicated
CPT/HCPCS: 87635; 87804; 99212; 99214; G0463

== ENCOUNTER 2023-12-17 13:57 | Emergency (ER) | payer OTHER, SELFPAY ==
[2023-12-17 14:35] VITALS: BP 131/82; PULSE 71; RESP 17; TEMP 36.8; O2SAT 98; BMI 24.8
--- NOTE | 2023-12-17 14:55 | EXP.UTC ---
Discharge Plan Disposition Patient Disposition: Home, Self-Care Condition: Good Prescriptions Prescriptions: New cephalexin 500 mg tablet 500 mg PO BID 7 Days Qty: 14 0RF ondansetron 4 mg tablet,disintegrating 4 mg PO Q8H PRN (Reason: nausea and vomiting) Qty: 10 0RF Referrals Follow up/Referrals: Socorro Mehta PA [Primary Care Provider] - See instructions Activity Restrictions/Add. Instructions Additional Instructions/Restrictions: Drink extra fluids with and between meals. If you have difficulty drinking, try very small amounts of water or suck on ice chips. ? Avoid fruit juices, as these do not replace minerals and can actually increase diarrhea. ? Children and adults can use sports drinks to replenish electrolytes. Younger children and infants should use products formulated for children, like oral rehydration solutions. ? Eat food in small amounts and let your stomach recover. ? Get lots of rest. You may feel tired or weak. ? No greasy or fried foods for the next 24-48 hours BRAT diet Bananas Rice Apples and Andrews ? Make sure to drink plenty of liquids ? Return if needed ? Straight to ER if any life threatening symptoms ? Zofran as prescribed ? Follow up with family doctor in the next 48-72 hours if no improvement or any worsening of symptoms Clinical Impressions Clinical Impression: Otitis media Stand Alone Forms Stand Alone Forms: Work/School Release Instructions Patient Instructions: Middle Ear Infection, DI for Vomiting -- Adult Discharge ED Provider: Eli Estes [facility] General Stated complaint: vomiting, fever Mode of Arrival: Ambulatory Source of Information: Patient Limitations: No Limitations Time Seen by Provider: 12/17/23 14:55 Description of Symptoms (Recalled from Triage Doc. by RN): Pt's symptoms are vomiting, and cramping in stomach. HEENT Symptoms (Recalled from RN notes): Yes Resp Symptoms (Recalled from RN notes): No Skin Symptoms (Recalled from RN notes): No MS Symptoms (Recalled from RN notes): No Functional Status (Recalled from RN notes): n/a History of Present Illness Provider Complaint: Patient states that she has bad ears and has been having pain and pressure in her ears and has been having N/V for the last couple of days States that she hasnt been able to eat much but has been drinking more to stay hydrated Related Data Previous Rx's Medication Instructions Recorded cephalexin 500 mg tablet 500 mg PO BID 7 days #14 tabs 12/17/23 ondansetron 4 mg disintegrating 4 mg PO Q8H PRN nausea and 12/17/23 tablet vomiting #10 tabs Allergies Allergy/AdvReac Type Severity Reaction Status Date / Time penicillin G [PENICILLIN G] Allergy Intermediate I-HIVES Verified 12/17/23 14:50 Sulfa (Sulfonamide Allergy Intermediate I-HIVES Verified 12/17/23 14:50 Antibiotics) [SULFA (SULFONAMIDE ANTIBIOTICS)] Worker's Comp Is this a Worker's Comp case?: No [facility] Disclaimer: The information contained in this section may have been updated after the patient was seen, as this information can be updated by other users. Medical History Hepatitis C Lung nodules Obesity (BMI 30-39.9) Surgical History H/O tubal ligation History of tympanostomy tube placement Social History Smoking Status: Current every day smoker tobacco type: cigarettes packs per day: 1 alcohol intake: never substance use type: former substance user, heroin and opiates current occupational status: unemployed Travel in the last 8 weeks: None ROS Obtained: Yes All systems reviewed & no additional complaints except as documented and Yes Systems reviewed as appropriate & no additional complaints except as documented Constitutional Constitutional: Reports system reviewed and no additional complaints, except as documented and Reports as per HPI ENT Ears, Nose, Mouth, and Throat: Reports system reviewed and no additional complaints, except as documented, Reports as per HPI and Reports otalgia Cardiovascular Cardiovascular: Reports system reviewed and no additional complaints, except as documented and Reports as per HPI Respiratory Respiratory: Reports system reviewed and no additional complaints, except as documented and Reports as per HPI Gastrointestinal Gastrointestingal: Reports system reviewed and no additional complaints, except as documented, as per HPI, cramping, nausea and vomiting; Denies diarrhea Physical Exam General General appearance: alert and in no apparent distress ENT ENT exam: Present mucous membranes moist Expanded ENT Exam TM/Canal exam: Right TM: erythema and loss of landmarks Respiratory Respiratory exam: Present normal lung sounds bilaterally; Absent respiratory distress or wheezes Cardiovascular Cardiovascular exam: Present regular rate, normal rhythm and normal heart sounds Abdominal Exam Abdominal exam: Present soft and normal bowel sounds; Absent distention or tenderness Neurological Exam Neurological exam: Present alert, oriented X3 and normal gait Medical Decision Making Ignacio Inquiry Pt receiving controlled substance: No Ignacio was queried for this patient: No Vital Signs: 12/17/23 14:35 Temperature 98.3 F Temperature Source Oral Pulse Rate [Right Radial] 71 Respiratory Rate 17 Blood Pressure [Right Arm] 131/82 Blood Pressure Mean [Right Arm] 98 Blood Pressure Source [Right Arm] Automatic Cuff Blood Pressure Position [Right Arm] Sitting 02 Sat by Pulse Oximetry 98 Oxygen Delivery Method Room Air Medical Decision Narrative: Patient states that she is allergic to PCN but has taken Cephalexin in the past without complications or reactions
[2023-12-17 15:14] VITALS: BP 131/82; PULSE 71; RESP 17; TEMP 36.8; O2SAT 98
== END 2023-12-17 15:14 | disposition home or self-care (01) ==
PROVIDERS: Emergency Provider Nurse Practitioner; PCP Physician Assistant
DX: H66.91 Otitis media, unspecified, right ear (principal); R50.9 Fever, unspecified; R11.2 Nausea with vomiting, unspecified
CPT/HCPCS: 99212; 99214; G0463

== ENCOUNTER 2023-12-22 18:00 | Outpatient (CLI) | payer OTHER, SELFPAY ==
[2023-12-22 18:45] LABS: Basophils # 0.1 K/mm3 (0-0.2); Basophils % 1.3 % (0.1-2.0); Eosinophils # 0.1 K/mm3 (0.0-0.4); Eosinophils % 1.3 % (0.1-12.0); Hematocrit 45.9 % (37.0-47.0); Hemoglobin 14.8 g/dL (12.2-16.2); Lymphocytes # 2.9 K/mm3 (0.7-4.5); Lymphocytes % 35.1 % (10-50); Mean Corpuscular HGB Conc 32.2 g/dL (31.8-35.4); Mean Corpuscular Hemoglobin 28.4 pg (27.0-31.2); Mean Corpuscular Volume 88.3 fl (81-99); Mean Platelet Volume 12.8 fl (7.4-10.4); Monocytes # 0.4 K/mm3 (0.1-1.0); Monocytes % 5.2 % (1.7-9.3); Neutrophils # 4.7 K/mm3 (1.8-7.8); Neutrophils % 57.1 % (37.0-80.0); Platelet Count 193 K/mm3 (142-424); Red Blood Count 5.19 M/mm3 (4.20-5.40); Red Cell Distribution Width 14.4 % (11.5-17.5); White Blood Count 8.2 K/mm3 (4.8-10.8)
[2023-12-22 18:53] LABS: Hemoglobin A1C 5.3 % (4.0-6.0)
[2023-12-22 19:21] LABS: Alanine Aminotransferase 35 U/L (12-78); Albumin Level 4.7 g/dl (3.5-5.0); Albumin/Globulin Ratio 1.6 (1.1-1.8); Alkaline Phosphatase 68 U/L (38-126); Amylase 60 U/L (30-110); Anion Gap 11.2 mEq/L (5-15); Aspartate Amino Transferase 37 U/L (14-36); Bilirubin,Total 0.6 mg/dl (0.2-1.3); Blood Urea Nitrogen 9 mg/dl (7-17); Calcium 9.5 mg/dl (8.4-10.2); Carbon Dioxide 25 mmol/L (22.0-30.0); Chloride 107 mmol/L (98-107); Cholesterol 196 mg/dl (140-200); Estimated Glomerular Filt Rate 92 ml/min (>60); GFR (African American) 112 ML/MIN (>60); Globulin 2.9 g/dL (1.3-3.2); Glucose 78 mg/dl (74-100); HDL Cholesterol 96 mg/dl (40-60); Lipase 36 U/L (23-300); Potassium 4.2 mmoL/L (3.5-5.1); Sodium 139 mmol/L (136-145); Total Protein,Serum 7.6 g/dl (6.3-8.2); Triglycerides 76 mg/dl (30-150); VLDL Cholesterol 15 mg/dL (0-40)
[2023-12-22 19:33] LABS: Direct LDL Cholesterol 90.59 mg/dL (100-129)
[2023-12-22 19:36] LABS: 25-OH Vitamin D, Total 22.2 ng/mL (30-100)
[2023-12-22 19:54] LABS: Thyroid Stimulating Hormone 1.25 uIU/mL (0.465-4.68)
[2023-12-22 20:12] LABS: Vitamin B12 939 pg/mL (239-931)
== END 2023-12-22 23:59 | disposition home or self-care (01) ==
LOC: LAB.DROPOF 12-23 09:10
PROVIDERS: PCP Family Medicine; Visit Provider Family Medicine
DX: R53.83 Other fatigue (principal); E55.9 Vitamin D deficiency, unspecified; Z68.24 Body mass index [BMI] 24.0-24.9, adult
CPT/HCPCS: 80053; 80061; 82150; 82306; 82607; 83036; 83690; 84443; 85025

== ENCOUNTER 2024-01-05 07:04 | Outpatient (CLI) | payer OTHER, SELFPAY ==
--- NOTE | 2024-01-05 07:04 | CT_ITS ---
FINAL REPORT TECHNIQUE: Axial CT images were performed from the lung apices through the upper abdomen. Coronal reformats were submitted. This study was performed with techniques to keep radiation doses as low as reasonably achievable (ALARA). Individualized dose reduction techniques using automated exposure control or adjustment of mA and/or kV according to the patient's size were employed. CLINICAL HISTORY: lung nodules, smoker COMPARISON: 06/11/2021 FINDINGS: There is no axillary adenopathy. There is no hilar or mediastinal mass or adenopathy. Heart size is normal. There is no pericardial or pleural effusion. Limited images of the upper abdomen are unremarkable. There is mild emphysema and mild pulmonary scarring. Nodule at the right lung apex measures 6 mm, previously measured 6 mm. Finding is best seen on image 9. Several other less than 5 mm nodules are visually stable. No new mass or nodule is identified. There is a calcified granuloma in the right upper lobe. IMPRESSION: Stable nodules as detailed above. Consider additional follow-up in 12 months. Reviewed, Interpreted and Dictated by Kendall Grullon III, MD Transcribed by Maya Hopkins Authenticated and [facility]
== END 2024-01-05 23:59 | disposition home or self-care (01) ==
LOC: RAD 07:04
PROVIDERS: PCP Physician Assistant; Visit Provider Family Medicine
DX: R91.1 Solitary pulmonary nodule (principal); F17.210 Nicotine dependence, cigarettes, uncomplicated
CPT/HCPCS: 71250

== ENCOUNTER 2024-09-18 23:24 | Emergency (ER) | payer SELFPAY ==
[2024-09-18 23:32] VITALS: BP 130/78; PULSE 87; RESP 20; TEMP 36.8; O2SAT 99; BMI 23.4
--- NOTE | 2024-09-18 23:41 | ED_ITS ---
Discharge Plan Disposition Patient Disposition: Home, Self-Care Condition: Good Prescriptions Prescriptions: New clotrimazole 1 % ointment 1 applic topical BID 14 Days Qty: 56.7 0RF No Action omeprazole 20 mg capsule,delayed release(DR/EC) 20 mg PO DAILY Qty: 30 2RF dicyclomine 10 mg capsule 10 mg PO BID Qty: 60 2RF sucralfate [Carafate] 1 gram tablet 1 g PO TID Qty: 90 2RF albuterol sulfate [Ventolin HFA] 90 mcg/actuation HFA aerosol inhaler 1 inh inhalation QID Qty: 18 2RF fluticasone propion-salmeterol [Advair Diskus] 100-50 mcg/dose blister with device 1 inh inhalation BID Qty: 60 3RF cephalexin 500 mg tablet 500 mg PO BID 7 Days Qty: 14 0RF ondansetron 4 mg tablet,disintegrating 4 mg PO Q8H PRN (Reason: nausea and vomiting) Qty: 10 0RF Activity Restrictions/Add. Instructions Additional Instructions/Restrictions: You were evaluated in the ER and are appropriate for discharge at this time. Use the prescribed clotrimazole cream twice daily for 2 weeks on the affected area. Other than the ointment, keep the area clean and dry. After you bathe/shower, be sure the bellybutton is dry before using the ointment. Please call your primary care doctor and make an appointment for follow-up in a few days. Return to the ER with new, worsening, or otherwise concerning symptoms as discussed. Clinical Impressions Clinical Impression: Yeast dermatitis Instructions Patient Instructions: DI for Skin Abscess Print Language Print Language: [place] Discharge ED Provider: Alfred Ma General Adult HPI General Chief complaint: Skin/Abscess/Foreign Body Stated complaint: infection navel Time Seen by Provider: 09/18/24 23:30 Mode of Arrival: Ambulatory Source of Information: Patient Limitations: No Limitations Description of Symptoms (Recalled from ER Triage Doc. by RN): Pt has red moist area of irritation to umbilicus History of Present Illness HPI narrative: 44-year-old female presents to the ER complaining of bellybutton irritation. Patient reports yesterday she noticed redness and a foul smell. She states today it seemed worse so she came to the ER for evaluation. She is concerned she may have ringworm due to a possible recent exposure. She states she cleaned the area with hydrogen peroxide before coming to the ER. She denies any fevers, chills, nausea, vomiting, diarrhea, abdominal pain, dysuria, hematuria, or any other associated symptoms. She has not tried any treatments on this area prior to arrival. Related Data Previous Rx's ?Medication ?Instructions ?Recorded cephalexin 500 mg tablet 500 mg PO BID 7 days #14 tabs 12/17/23 ondansetron 4 mg disintegrating 4 mg PO Q8H PRN nausea and 12/17/23 tablet vomiting #10 tabs dicyclomine 10 mg capsule 10 mg PO BID #60 caps 12/22/23 omeprazole 20 mg capsule,delayed 20 mg PO DAILY #30 caps 12/22/23 release sucralfate 1 gram tablet (Carafate) 1 g PO TID #90 tabs 12/22/23 Ventolin HFA 90 mcg/actuation 1 inh inhalation QID #18 grams 01/19/24 aerosol inhaler (albuterol sulfate) fluticasone 100 mcg-salmeterol 50 1 inh inhalation BID #60 ea 01/24/24 mcg/dose blistr powdr for inhalation (Advair Diskus) clotrimazole 1 % topical ointment 1 applic topical BID 2 weeks #56.7 09/18/24 grams Allergies Allergy/AdvReac Type Severity Reaction Status Date / Time penicillin G (PENICILLIN G) Allergy Intermediate I-HIVES Verified 12/22/23 15:10 Sulfa (Sulfonamide Allergy Intermediate I-HIVES Verified 12/22/23 15:10 Antibiotics) (SULFA (SULFONAMIDE ANTIBIOTICS)) [facility] Disclaimer: The information contained in this section may have been updated after the patient was seen, as this information can be updated by other users. Medical History (Updated 09/18/24 @ 23:41 by Alfred Ma MD) Muscle strain Otitis media Influenza A Dog bite of right lower leg Acute viral syndrome Close exposure to COVID-19 virus Obesity (BMI 30-39.9) Hepatitis C Lung nodules Surgical History H/O tubal ligation History of tympanostomy tube placement Social History Smoking Status: Current every day smoker tobacco type: cigarettes packs per day: 1 alcohol intake: never substance use type: former substance user, heroin and opiates current occupational status: unemployed Travel in the last 8 weeks: None Have you lived/traveled outside [place] in past 30 days?: No Contact w/someone who lives/traveled outside US past 30 days?: No Exposure to someone with infectious disease in past 14 days?: No Do you have a fever (greater than 100.4 F or 38 C)?: No Have you tested positive for COVID-19: No Exposed to someone with COVID-19 in past 14 days?: No Do you have a sore throat?: No Do you have a cough?: No Do you have any weakness?: No Do you have any diarrhea?: No Are you experiencing any unusual bleeding?: No Do you have any muscle aches/pain?: No Do you have any abdominal pain?: No Are you experiencing loss of taste or smell?: No Other Medical History Have you received the Flu Vaccine for this season: No Have you received the Pneumonia Vaccine: No ROS Obtained: Yes Systems reviewed as appropriate & no additional complaints except as documented Per HPI Physical Exam General General appearance: alert and in no apparent distress Head Head exam: atraumatic and normocephalic Eye Eye exam: Present PERRL and EOMI ENT ENT exam: Present mucous membranes moist Neck Neck exam: Present normal inspection and full ROM Chest Chest inspection: Present symmetric chest wall rise Respiratory Respiratory exam: Absent respiratory distress or stridor Cardiovascular Cardiovascular exam: Present regular rate and normal rhythm Abdominal Exam Abdominal exam: Present soft; Absent distention, tenderness, guarding or rebound Extremities Exam Extremities exam: Present full ROM Neurological Exam Neurological exam: Present alert and oriented X3; Absent motor sensory deficit Psychiatric Psychiatric exam: Present normal affect and normal mood Skin Skin exam: Present warm, dry and other (Umbilicus appears damp but is dry to the touch at this time, it is mildly erythematous with no induration, there is a 5 mm border of erythema outside the umbilicus with few small satellite lesions. No raised border, nontender, no vesicles, no sloughing, no fluctuance) Medical Decision Making Medical Records Screening: Per USPSTF and CDC recommendations, given the prevalence of disease in our region, it is our hospital?s policy to screen for HIV and viral Hepatitis for all patients aged 18 and over and those with ongoing risk factors. Ignacio Inquiry Pt receiving controlled substance: No Vital Signs: 09/18/24 23:32 09/18/24 23:42 Temperature 98.2 F 98.2 F Temperature Source Oral Oral Pulse Rate 87 Pulse Rate [Right Brachial] 87 Respiratory Rate 20 20 Blood Pressure 130/80 Blood Pressure [Right Arm] 130/78 Blood Pressure Mean [Right Arm] 95 Blood Pressure Source Automatic Cuff Blood Pressure Source [Right Arm] Automatic Cuff Blood Pressure Position Sitting Blood Pressure Position [Right Arm] Sitting 02 Sat by Pulse Oximetry 99 Oxygen Delivery Method Room Air Room Air Orders (Tests/Meds): ED MEDICATIONS Discontinued Medications Generic Name Dose Route Start Last Admin Trade Name Freq PRN Reason Stop Dose Admin Clotrimazole 15 gm 09/18/24 23:34 09/18/24 23:41 Clotrimazole 1% Cream 15gm Tube TP 09/18/24 23:35 Not Given ONCE ONE ORDERS Category Date Time Status HIV Combo Routine Lab 09/18/24 23:34 Ordered Hepatitis C Ab Qual. W/ RFX Routine Lab 09/18/24 23:34 Ordered Medical Decision Narrative: In summary, this 44-year-old female presents to the emergency department today with irritation of the bellybutton. On initial evaluation patient is hemodynamically stable, afebrile, well-appearing, patient has mild erythema of the inside of the umbilicus, the erythema extends in a border approximately 5 mm outside the umbilicus. Patient is noted to have a very involuted umbilicus under a skin fold. The skin appears moist but feels dry to the touch, no flaking, no raised border, there are associated satellite lesions and a mild malodorous smell. Differential diagnosis includes but is not limited to yeast dermatitis which I believe is most likely, also considered ringworm however patient does not have dry, flaking skin, itching, or a classic raised border. I had considered cellulitis but there is no induration, heat, or tenderness associated, this is obviously very superficial irritation. No findings of abscess. Also possible patient has contact dermatitis though I consider this less likely since she reports no changes in soaps, lotions, etc.. I do not believe labs or imaging are indicated at this time since patient has no other associated symptoms or findings on exam. I ordered topical clotrimazole to be applied in the ER, however this was not available on our formulary. I prescribed topical clotrimazole and gave the patient instructions on care of the area including no more use of hydrogen peroxide, keeping it clean and dry, and using the ointment as prescribed. She also received instructions to follow-up closely with her primary care doctor as well as return precautions for the ER if she were to develop any worsening symptoms, abdominal pain, systemic symptoms, or anything else new or concerning. She indicated understanding to all instructions and the patient was discharged in stable condition. Critical Care Critical Care Time Critical Care Time: No
[2024-09-18 23:42] VITALS: BP 130/80; PULSE 87; RESP 20; TEMP 36.8; O2SAT 99
== END 2024-09-18 23:45 | disposition home or self-care (01) ==
PROVIDERS: Emergency Provider Emergency Medicine; PCP Physician Assistant
DX: B37.2 Candidiasis of skin and nail (principal); R10.33 Periumbilical pain; F17.210 Nicotine dependence, cigarettes, uncomplicated
CPT/HCPCS: 99283

== ENCOUNTER 2024-11-19 22:58 | Emergency (ER) | payer SELFPAY ==
[2024-11-19 23:14] VITALS: BP 107/63; PULSE 98; RESP 18; TEMP 36.8; O2SAT 98; BMI 24.2
[2024-11-19 23:34] LABS: Coronavirus 19, PCR Not Detected (NotDetected); Influenza A, PCR Not Detected (NotDetected); Influenza B, PCR Not Detected (NotDetected)
--- NOTE | 2024-11-19 23:56 | ED_ITS ---
Discharge Plan Disposition Patient Disposition: Home, Self-Care Prescriptions Prescriptions: No Action omeprazole 20 mg capsule,delayed release(DR/EC) 20 mg PO DAILY Qty: 30 2RF dicyclomine 10 mg capsule 10 mg PO BID Qty: 60 2RF sucralfate [Carafate] 1 gram tablet 1 g PO TID Qty: 90 2RF albuterol sulfate [Ventolin HFA] 90 mcg/actuation HFA aerosol inhaler 1 inh inhalation QID Qty: 18 2RF fluticasone propion-salmeterol [Advair Diskus] 100-50 mcg/dose blister with device 1 inh inhalation BID Qty: 60 3RF clotrimazole 1 % ointment 1 applic topical BID 14 Days Qty: 56.7 0RF cephalexin 500 mg tablet 500 mg PO BID 7 Days Qty: 14 0RF ondansetron 4 mg tablet,disintegrating 4 mg PO Q8H PRN (Reason: nausea and vomiting) Qty: 10 0RF Referrals Follow up/Referrals: Provider,Referral, MD [Primary Care Provider] - See instructions Activity Restrictions/Add. Instructions Additional Instructions/Restrictions: Please follow up with your primary care provider. Clinical Impressions Clinical Impression: Acute viral syndrome Stand Alone Forms Stand Alone Forms: Work/School Release Print Language Print Language: Setsw[place] Discharge ED Provider: Zheng Osborne General Adult HPI General Chief complaint: PAIN Stated complaint: body aches , sore throat, headach Time Seen by Provider: 11/19/24 23:56 Mode of Arrival: Ambulatory Source of Information: Patient Description of Symptoms (Recalled from ER Triage Doc. by RN): c/o aching all over, headache. x 2 days History of Present Illness HPI narrative: 44-year-old female with history of of COPD, hepatitis C, presents for viral s yndrome. Reports that today she has had a bit of a headache, muscle aches, mild cough, mild nausea. Denies any fever at home. Denies any significant shortness of breath. Related Data Previous Rx's ?Medication ?Instructions ?Recorded cephalexin 500 mg tablet 500 mg PO BID 7 days #14 tabs 12/17/23 ondansetron 4 mg disintegrating 4 mg PO Q8H PRN nausea and 12/17/23 tablet vomiting #10 tabs dicyclomine 10 mg capsule 10 mg PO BID #60 caps 12/22/23 omeprazole 20 mg capsule,delayed 20 mg PO DAILY #30 caps 12/22/23 release sucralfate 1 gram tablet (Carafate) 1 g PO TID #90 tabs 12/22/23 Ventolin HFA 90 mcg/actuation 1 inh inhalation QID #18 grams 01/19/24 aerosol inhaler (albuterol sulfate) fluticasone 100 mcg-salmeterol 50 1 inh inhalation BID #60 ea 01/24/24 mcg/dose blistr powdr for inhalation (Advair Diskus) clotrimazole 1 % topical ointment 1 applic topical BID 2 weeks #56.7 09/18/24 grams Allergies Allergy/AdvReac Type Severity Reaction Status Date / Time penicillin G (PENICILLIN G) Allergy Intermediate I-HIVES Verified 12/22/23 15:10 Sulfa (Sulfonamide Allergy Intermediate I-HIVES Verified 12/22/23 15:10 Antibiotics) (SULFA (SULFONAMIDE ANTIBIOTICS)) [facility] Disclaimer: The information contained in this section may have been updated after the patient was seen, as this information can be updated by other users. Medical History (Updated 11/20/24 @ 00:05 by Zheng Osborne MD) Muscle strain Otitis media Influenza A Dog bite of right lower leg Acute viral syndrome Close exposure to COVID-19 virus Obesity (BMI 30-39.9) Hepatitis C Lung nodules Surgical History H/O tubal ligation History of tympanostomy tube placement Social History Smoking Status: Unknown if ever smoked alcohol intake: never substance use type: former substance user, heroin and opiates current occupational status: unemployed Travel in the last 8 weeks: None Other Medical History Have you received the Flu Vaccine for this season: No Have you received the Pneumonia Vaccine: No ROS Obtained: Yes All systems reviewed & no additional complaints except as documented Physical Exam General General appearance: alert and in no apparent distress Head Head exam: atraumatic and normocephalic Eye Eye exam: Present normal appearance, PERRL and EOMI ENT ENT exam: Present normal oropharynx and normal external ear exam Neck Neck exam: Present normal inspection and full ROM Chest Chest inspection: Present normal inspection and symmetric chest wall rise; Absent tenderness Respiratory Respiratory exam: Present normal lung sounds bilaterally; Absent respiratory distress Cardiovascular Cardiovascular exam: Present regular rate and normal rhythm Abdominal Exam Abdominal exam: Present soft; Absent distention, tenderness or guarding Extremities Exam Extremities exam: Present normal inspection; Absent edema or joint swelling Back Exam Back exam: Present normal inspection; Absent tenderness Neurological Exam Neurological exam: Present alert and oriented X3; Absent motor sensory deficit Psychiatric Psychiatric exam: Present normal affect and normal mood Skin Skin exam: Present warm, dry and normal color Lymphatic Lymphatic Findings: no adenopathy Medical Decision Making Medical Records Medical records reviewed: Yes I reviewed the patient's medical records. Screening: Per USPSTF and CDC recommendations, given the prevalence of disease in our region, it is our hospital?s policy to screen for HIV and viral Hepatitis for all patients aged 18 and over and those with ongoing risk factors. Ignacio Inquiry Pt receiving controlled substance: No Ignacio was queried for this patient: No Vital Signs: 11/19/24 23:14 11/20/24 00:12 11/20/24 00:12 Temperature 98.3 F 98.2 F 98.1 F Temperature Source Oral Oral Pulse Rate 62 78 Pulse Rate [Right Brachial] 98 H Respiratory Rate 18 18 21 Blood Pressure 110/68 110/87 Blood Pressure [Right Arm] 107/63 L Blood Pressure Mean [Right Arm] 77 Blood Pressure Source Automatic Cuff Blood Pressure Source [Right Arm] Automatic Cuff Blood Pressure Position Sitting Blood Pressure Position [Right Arm] Sitting 02 Sat by Pulse Oximetry 98 Oxygen Delivery Method Room Air Room Air Lab Data Lab results reviewed: Yes I reviewed the patient's lab results. Lab Results 11/19/24 23:00: SARS-CoV-2 (PCR) Not detected, Influenza A Untype (PCR) Not detected, Influenza Type B (PCR) Not detected Orders (Tests/Meds): ORDERS Category Date Time Status Rapid PCR Covid and Flu A/B Stat Lab 11/19/24 23:00 Completed Medical Decision Narrative: 44-year-old female with history of COPD presents for 1 day of mild headache, muscle aches, cough, congestion. History was obtained via interactive discussion with patient. On arrival, patient is [afebrile, hemodynamically stable, satting appropriately, alert, oriented x4, GCS 15], moving all extremities spontaneously. Full physical exam performed and significant for no significant physical exam normalities. Differential includes but is not limited to COVID, flu, URI, pneumonia. Blood work, chest x-ray, treatment for COPD exacerbation was considered, but deemed unnecessary due to benign history and exam. Given patient history, exam and workup, patient's presentation most likely re presents viral URI. COVID flu was negative, likely some other virus. Patient discharged in stable condition with return precautions. Procedures Risk/Benefits of Procedure(s) Were Explained: Yes Critical Care Critical Care Time Critical Care Time: No
[2024-11-20 00:12] VITALS: BP 110/68; BP 110/87; PULSE 62; PULSE 78; RESP 18; RESP 21; TEMP 36.7; TEMP 36.8; O2SAT 98
== END 2024-11-20 00:13 | disposition home or self-care (01) ==
PROVIDERS: Emergency Provider Emergency Medicine
DX: B34.9 Viral infection, unspecified (principal)
CPT/HCPCS: 87636; 99283

== ENCOUNTER 2025-03-19 23:21 | Emergency (ER) | payer OTHER, SELFPAY ==
[2025-03-19 23:26] VITALS: BP 132/80; PULSE 102; RESP 20; TEMP 36.7; O2SAT 100
--- NOTE | 2025-03-19 23:31 | PC.NURSE ---
Pt awake alert and oriented Skin pink warm and dry Bleeding controlled. Speech clear and appropriate.
--- NOTE | 2025-03-19 23:32 | PC.NURSE ---
Report given to Souleymane KEARNS
[2025-03-20 00:17] VITALS: BP 130/78; PULSE 97; RESP 18; TEMP 36.7; O2SAT 98
--- NOTE | 2025-03-20 01:58 | [facility].EDGENADL ---
Discharge Plan Disposition Patient Disposition: Home, Self-Care Condition: Good Prescriptions Prescriptions: No Action omeprazole 20 mg capsule,delayed release(DR/EC) 20 mg PO DAILY Qty: 30 2RF dicyclomine 10 mg capsule 10 mg PO BID Qty: 60 2RF sucralfate [Carafate] 1 gram tablet 1 g PO TID Qty: 90 2RF albuterol sulfate [Ventolin HFA] 90 mcg/actuation HFA aerosol inhaler 1 inh inhalation QID Qty: 18 2RF fluticasone propion-salmeterol [Advair Diskus] 100-50 mcg/dose blister with device 1 inh inhalation BID Qty: 60 3RF clotrimazole 1 % ointment 1 applic topical BID 14 Days Qty: 56.7 0RF cephalexin 500 mg tablet 500 mg PO BID 7 Days Qty: 14 0RF ondansetron 4 mg tablet,disintegrating 4 mg PO Q8H PRN (Reason: nausea and vomiting) Qty: 10 0RF Referrals Follow up/Referrals: Provider,Referral, MD [Primary Care Provider, Medical] - See instructions Activity Restrictions/Add. Instructions Additional Instructions/Restrictions: You were evaluated in the ER and are believed to be appropriate for discharge at this time. Keep the wounds clean and dry. Shower/bathe like normal. Do not apply anything to the wounds until after all the glue has flaked off. After the wounds are healed, make sure you use sunscreen and vitamin E oil to limit scarring. Make an appointment with your primary care doctor for reevaluation in few days. Return to the ER with any new, worsening, or otherwise concerning symptoms including but not limited to signs of infection. Clinical Impressions Clinical Impression: Face lacerations Stand Alone Forms Stand Alone Forms: Work/School Release Instructions Patient Instructions: DI for Laceration Repair, DI for Laceration Repair-Skin Glue Print Language Print Language: Maori Discharge ED Provider: Alfred Ma Adult HPI General Chief complaint: Wound/Laceration Stated complaint: fall, lacerations on face Time Seen by Provider: 03/20/25 00:01 Mode of Arrival: Ambulatory Source of Information: Patient Description of Symptoms (Recalled from ER Triage Doc. by RN): Pt states she tripped and hit nose and eye on window metal ledge Laceration noted to right eyelid and nose History of Present Illness HPI narrative: 44-year-old female presents to the ER complaining of face lacerations. Patient states she was tripped by her dog and hit her nose and right eyebrow on a metal window ledge. Patient reports no eye pain or vision changes, no difficulty breathing, no bleeding from the nose, lacerations are hemostatic on arrival to the ER. Last tetanus shot is reported by the patient to be in the last 2 to 2-1/2 years. Patient has no other complaints or concerns. She does not take any blood thinners. No loss of consciousness. Related Data Previous Rx's ?Medication ?Instructions ?Recorded cephalexin 500 mg tablet 500 mg PO BID 7 days #14 tabs 12/17/23 ondansetron 4 mg disintegrating 4 mg PO Q8H PRN nausea and 12/17/23 tablet vomiting #10 tabs dicyclomine 10 mg capsule 10 mg PO BID #60 caps 12/22/23 omeprazole 20 mg capsule,delayed 20 mg PO DAILY #30 caps 12/22/23 release sucralfate 1 gram tablet (Carafate) 1 g PO TID #90 tabs 12/22/23 Ventolin HFA 90 mcg/actuation 1 inh inhalation QID #18 grams 01/19/24 aerosol inhaler (albuterol sulfate) fluticasone 100 mcg-salmeterol 50 1 inh inhalation BID #60 ea 01/24/24 mcg/dose blistr powdr for inhalation (Advair Diskus) clotrimazole 1 % topical ointment 1 applic topical BID 2 weeks #56.7 09/18/24 grams Allergies Allergy/AdvReac Type Severity Reaction Status Date / Time penicillin G (PENICILLIN G) Allergy Intermediate I-HIVES Verified 12/22/23 15:10 Sulfa (Sulfonamide Allergy Intermediate I-HIVES Verified 12/22/23 15:10 Antibiotics) (SULFA (SULFONAMIDE ANTIBIOTICS)) [facility] Disclaimer: The information contained in this section may have been updated after the patient was seen, as this information can be updated by other users. Medical History (Updated 03/20/25 @ 00:16 by Alfred Ma MD) Muscle strain Otitis media Influenza A Dog bite of right lower leg Acute viral syndrome Close exposure to COVID-19 virus Obesity (BMI 30-39.9) Hepatitis C Lung nodules Surgical History H/O tubal ligation History of tympanostomy tube placement Social History Smoking Status: Current every day smoker tobacco type: cigarettes packs per day: 1 alcohol intake: never substance use type: former substance user, heroin and opiates current occupational status: unemployed Travel in the last 8 weeks?: None Have you lived/traveled outside [place] in past 30 days?: No Contact w/someone who lives/traveled outside [place] past 30 days?: No Exposure to someone with infectious disease in past 14 days?: No Do you have a fever (greater than 100.4 F or 38 C)?: No Have you tested positive for COVID-19?: No Exposed to someone with COVID-19 in past 14 days?: No Do you have a sore throat?: No Do you have a cough?: No Do you have any weakness?: No Do you have any diarrhea?: No Are you experiencing any unusual bleeding?: No Do you have any muscle aches/pain?: No Do you have any abdominal pain?: No Are you experiencing loss of taste or smell?: No Other Medical History Have you received the Flu Vaccine for this season: No Have you received the Pneumonia Vaccine: No ROS Obtained: Yes Systems reviewed as appropriate & no additional complaints except as documented Per HPI Physical Exam General General appearance: alert and in no apparent distress Head Head exam: normocephalic and other Expanded Head Exam Head image:  1. 3 cm laceration of the right eyebrow linear, shallow, hemostatic 2. 1 cm laceration just inferior to the right eyebrow, linear, shallow, hemostatic 3. 1 cm laceration over the bridge of the nose, shallow, hemostatic Eye Eye exam: Present PERRL, EOMI (And painless) and other (No periorbital bruising) ENT ENT exam: Present mucous membranes moist and other (No septal deviation or septal hematoma, no crepitus over the nose) Neck Neck exam: Present normal inspection and full ROM Chest Chest inspection: Present symmetric chest wall rise Respiratory Respiratory exam: Absent respiratory distress or stridor Cardiovascular Cardiovascular exam: Present regular rate and normal rhythm Extremities Exam Extremities exam: Present full ROM Neurological Exam Neurological exam: Present alert and oriented X3; Absent motor sensory deficit Psychiatric Psychiatric exam: Present normal affect and normal mood Skin Skin exam: Present warm and dry Medical Decision Making Medical Records Medical records reviewed: Yes I reviewed the patient's medical records. Screening: Per USPSTF and CDC recommendations, given the prevalence of disease in our region, it is our hospital?s policy to screen for HIV and viral Hepatitis for all patients aged 18 and over and those with ongoing risk factors. Ignacio Inquiry Pt receiving controlled substance: No Vital Signs: 03/19/25 23:26 03/20/25 00:17 Temperature 98.0 F 98.0 F Temperature Source Oral Oral Pulse Rate 97 H Pulse Rate [Right Radial] 102 H Respiratory Rate 20 18 Blood Pressure 130/78 Blood Pressure [Right Arm] 132/80 Blood Pressure Mean [Right Arm] 97 Blood Pressure Source [Right Arm] Automatic Cuff Blood Pressure Position Supine Blood Pressure Position [Right Arm] Sitting 02 Sat by Pulse Oximetry 100 Oxygen Delivery Method Room Air Room Air Medical Decision Narrative: In summary, this 44-year-old female who is a smoker which may complicate healing presents to the emergency department today with laceration on the right eyebrow and bridge of the nose. On initial evaluation patient is hemodynamically stable, afebrile, independently ambulatory into the ER, GCS 15, physical exam only notable for the lacerations on the face as described in the physical exam. Differential diagnosis includes but is not limited to laceration, consider damage to underlying structures including potential facial fractures but have no evidence of these clinically without any swelling or bruising, no focal tenderness or crepitus. There is no evidence of severe nasal injury such as septal hematoma, crepitus, or deviation. Patient is up-to-date on tetanus booster. Patient requires repair of the lacerations for optimal healing. I discussed sutures with the patient and recommended these for the best outcome to optimize healing and reduce scarring. She is adamantly against this and refuses sutures. She specifically states anything that close to my face freaks me out, I just want glue . We discussed the risks and benefits of glue. While it is beneficial in that it is quick and painless, it is more likely to have complications including infection and scarring. Patient was still prefer glue. She has capacity to make this decision. Lacerations were cleaned with saline and repaired, see procedure notes for details. Patient was given instructions on wound care, symptomatic monitoring and management, follow-up, and return precautions for the ER. She indicated understanding and the patient was discharged in stable condition. Procedures Risk/Benefits of Procedure(s) Were Explained: Yes Laceration Laceration 1: Site: face Side (If applicable): right (Eyebrow) Size (cm): 3 Description: linear and clean Pre-repair: irrigated extensively (Irrigated and cleansed with normal saline) Skin layer closed with: Dermabond Laceration 2: Site: face Side (If applicable): right (just inferior to eyebrow not involving lid) Size (cm): 1 Description: linear and clean Pre-repair: irrigated extensively (Irrigated and cleansed with normal saline) Skin layer closed with: Dermabond Laceration 3: Site: face Size (cm): 1 Description: linear, clean and other (overlying bridge of nose) Depth: simple, single layer Pre-repair: irrigated extensively (Irrigated and cleansed with normal saline) Skin layer closed with: Dermabond Critical Care Critical Care Time Critical Care Time: No
== END 2025-03-20 00:23 | disposition home or self-care (01) ==
PROVIDERS: Emergency Provider Emergency Medicine
DX: S01.81XA Laceration without foreign body of other part of head, initial encounter (principal); W01.0XXA Fall on same level from slipping, tripping and stumbling without subsequent striking against object, initial encounter; F17.210 Nicotine dependence, cigarettes, uncomplicated
CPT/HCPCS: 12013; 99283